=== PATIENT | female | born 2000 | race Caucasian/White ===

== ENCOUNTER 2021-05-03 00:08 | Emergency (ER) | payer MEDICAID ==
[~2021-05-03] VITALS: Ht 167.6 cm; Wt 100.7 kg
--- NOTE | 2021-05-03 00:40 | NUR ---
THIS IS A 20F THAT COMES IN AFTER A FALL FROM HER SCOOTER AROUND 1800, PT STS WAS WEARING HELMET WHEN SHE FELL AND WAS SEEN BY EMS EDUCATIONAL ASSISTANT TEACHER. PT CONNECTED TO MONITORING, VSS, MOM AT BEDSIDE NO NEEDS. SMALL ABRASION NOTED TO R ELBOW, PT REPORTS A PIECE OF GRAVEL BEING LODGED IN WOUND. ERP TO SEE
--- NOTE | 2021-05-03 00:42 | NUR ---
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
--- NOTE | 2021-05-03 00:55 | NUR ---
REPORT TO SEB BURKSORACLE MANAGER OF CARE AT THIS TIME
--- NOTE | 2021-05-03 00:56 | NUR ---
REPORT RECEIVED FROM MAHESH BURKS
[2021-05-03] MEDS ORDERED: LIDOCAINE-MPF 1%, 5ML ONE (01:07)
[2021-05-03] MEDS ORDERED: HYDROcodone/APAP 5/325 TABLET ONE ×2 (01:07→05:17)
[2021-05-03] MEDS ORDERED: LIDODERM 5% PATCH TD ONE ×2 (01:07→01:30)
[2021-05-03] MEDS ORDERED: HYDROcodone/APAP 5/325 TABLET PO ONE ×2 (01:30→05:30)
[2021-05-03] MEDS ORDERED: LIDOCAINE-MPF 1%, 5ML INFIL ONE (01:30)
--- NOTE | 2021-05-03 03:30 | NUR ---
MULTIPLE DISCUSSIONS WITH RADIOLOGY REGARDING CT READ AND DELAY OF PT CARE. RADIOLOGY WILL FOLLOW UP WITH STAT RAD. PT INFORMED OF DELAY. ERP ALSO AWARE AT THIS TIME. PT DENIES ANY ADDITIONAL NEEDS AT THIS TIME. CALL LIGHT AND PERSONAL BELONGINGS WITHIN REACH.
[2021-05-03] MEDS ORDERED: BACITRACIN ZINC OINT 500U/GM, 0.9 GM ONE (03:55)
[2021-05-03 05:51] VITALS: BP 123/78
--- NOTE | 2021-05-03 05:51 | NUR ---
Patient given discharge instructions and they have confirmed that they understand the instructions. Patient ambulatory with steady gait. NAD, all questions answered appropriately, denies additional needs at this time. No personal belongings left in room after discharge.
== END 2021-05-03 05:53 | disposition home or self-care (01) ==
LOC: ED 05:30
DX: S16.1XXA Strain of muscle, fascia and tendon at neck level, initial encounter (principal); S50.311A Abrasion of right elbow, initial encounter; S09.90XA Unspecified injury of head, initial encounter; M25.511 Pain in right shoulder; W18.30XA Fall on same level, unspecified, initial encounter; Y93.89 Activity, other specified; Y92.410 Unspecified street and highway as the place of occurrence of the external cause; Y99.8 Other external cause status
CPT/HCPCS: 70450; 99285